=== PATIENT | female | born 1985 | race Caucasian/White ===

== ENCOUNTER 2021-11-23 10:31 | Emergency (ER) | payer SELFPAY ==
[~2021-11-23] VITALS: Ht 152.4 cm; Wt 77.0 kg
[2021-11-23 10:45] VITALS: BP 149/80
--- NOTE | 2021-11-23 11:00 | PHYS DOC ---
Past History Past Surgical History: No Surgical History Adult General Chief Complaint Chief Complaint: KNEE INJURY HPI HPI Patient is a 36-year-old female presents emergency department complaining she stumbled and fell onto her right knee on . Patient reports a 8-9 out of 10 pain. Patient reports using ice packs to right knee on , reports taking a Tylenol the next day with minimal relief in pain, reports trying a knee brace compression device today with some relief in pain. Patient reports pain at the kneecap. Denies pain when at rest, reports her pain elicits when she stands or tries to walk. Patient denies other physical complaints or physical concerns. Reports her last menstrual cycle of normal duration of flow 3 weeks ago. Review of Systems Review of Systems 14 body systems of review of systems have been reviewed. See HPI for pertinent positives and negative responses, otherwise all other systems are negative, nonpertinent or noncontributory. Constitutional: Negative except as outlined in HPI above. Skin: Negative except as outlined in HPI above. Eyes: Negative except as outlined in HPI above. HENT: Negative except as outlined in HPI above. Respiratory: Negative except as outlined in HPI above. Cardiovascular: Negative except as outlined in HPI above. GI: Negative except as outlined in HPI above. : Negative except as outlined in HPI above. Musculoskeletal: Negative except as outlined in HPI above. Integument: Negative except as outlined in HPI above. Neurologic: Negative except as outlined in HPI above. Endocrine: Negative except as outlined in HPI above. Lymphatic: Negative except as outlined in HPI above. Psychiatric: Negative except as outlined in HPI above. Current Medications Current Medications Current Medications Medications (Trade) Dose Ordered Sig/Tere Start Time Stop Time Status Last Admin Dose Admin Ibuprofen (Motrin) 600 mg 1X ONCE 11/23/21 10:45 11/23/21 10:46 UNV Physical Exam Physical Exam Constitutional: Well developed, well nourished, no acute distress, non-toxic appearance. 36-year-old female in no apparent distress. HENT: Normocephalic, atraumatic. Eyes: Conjunctiva normal, no discharge. Neck: Normal range of motion, no stridor. Cardiovascular: No cyanosis appreciated, distal cap refill less than 2 seconds. Lungs & Thorax: Patient is in no respiratory distress, no audible adventitious lung sounds appreciated. Abdomen: Nontender, no abnormalities noted. Skin: Warm, dry, no erythema, no rash. Back: No tenderness, no deformities. Extremities: No tenderness, no cyanosis, no clubbing, ROM intact, no edema. Except for right lower extremity, pain to the kneecap with palpation, no crepitus appreciated with palpation, no bruising, no swelling, no edema, distal cap refill less than 2 seconds, 2+ bilateral dorsalis pedis pulses. Full passive range of motion of knee joint without eliciting pain, satisfactory knee stability tests. Neurologic: Alert and oriented X 3, normal motor function, normal sensory function, no focal deficits noted. Psychologic: Affect normal, judgement normal, mood normal. Current Patient Data Vital Signs Vital Signs Date Time Temp Pulse Resp B/P (MAP) Pulse Ox O2 Delivery O2 Flow Rate FiO2 11/23/21 10:45 98.1 102 18 149/80 (103) 100 Room Air EKG EKG [] Radiology/Procedures Radiology/Procedures REASON: Fall, patellar pain PROCEDURE: KNEE RIGHT 4V AP, oblique, sunrise, and lateral views of the right knee were obtained. Indication: Fall with patellar pain Comparison: none. Findings: No fracture, dislocation, significant degenerative changes, or effusion is seen. Impression: 1. Unremarkable examination of the right knee. Electronically signed by: Catracho Baird MD (11/23/2021 11:12 AM) [id number] Heart Score C/O Chest Pain: No Risk Factors: Risk Factors: DM, Current or recent (<one month) smoker, HTN, HLP, family history of CAD, obesity. Risk Scores: Risk Factors: DM, Current or recent (<one month) smoker, HTN, HLP, family history of CAD, obesity. Course & Med Decision Making Course & Med Decision Making Pertinent Labs and Imaging studies reviewed. (See chart for details) 36-year-old female, vital signs reviewed, presents to the emergency department concerning right knee pain after fall on . Physical examination concerning for right knee contusion versus bony injury, will order ice pack, x- ray of right knee, ibuprofen p.o. for pain. X-ray nonconcerning for acute fracture. Discussed findings with patient, discussed RICE therapy, continue to use compression device on right knee, NSAID therapy, patient requested work excuse for her because he brought her to the emergency department today. Discussed with patient follow-up with primary care for ongoing evaluation and treatment of right knee pain, patient gave verbal understanding of and is amenable to ED discharge planning. Discussed with the patient all findings and diagnostic testing as well as the need to follow-up with their primary care provider for further evaluation and treatment or return to the ED if any new or worsening symptoms. Strict return precautions were also discussed at length, the patient voiced understanding and agreement with the discharge planning. The patient was nontoxic in appearance, in no apparent distress, and hemodynamically stable at the time of disposition. Dragon Disclaimer Dragon Disclaimer This electronic medical record was generated, in whole or in part, using a voice recognition dictation system. Departure Departure: Impression: Primary Impression: Contusion of right knee Disposition: HOME / SELF CARE / HOMELESS Condition: GOOD Referrals: [facility]CP[facility] (PCP) Patient Instructions: Contusion, Knee Wraps (Elastic Bandage) and RICE Additional Instructions: You were seen in the emergency department today for pain of the right knee after a fall on . An x-ray did not show any concerning findings of broken bone or acute knee injury of the bones. As we discussed RICE therapy, this is a acronym for rest, ice, compression, elevation. Please use ice packs 30 minutes on and 30 minutes off while awake for the next 48 to 72 hours. Bela nue to use your compression knee brace device to aid in speedy recovery, elevate your knee often, I am prescribing you ibuprofen to take for discomfort. Please follow-up with your primary care provider soon for ongoing pain management of your knee pain. If you do not have a primary care provider, please consider using the [facility] located at [address] [place] [address] [place] [address], their telephone number is area code [phone]. Thank you for visiting our Emergency Department. It was a pleasure taking care of you today in the emergency department and we appreciate you trusting us with your care. If any additional problems come up don't hesitate to return to visit us. Please follow up with your primary care provider so they can plan additional care if needed and know about the problem that you had. If symptoms worsen come back to the Emergency Department. Any concerning symptoms that start such as chest pain, shortness of air, weakness or numbness on one side of the body, running high fevers or any other concerning symptoms return to the ER. EMERGENCY DEPARTMENT GENERAL DISCHARGE INSTRUCTIONS Thank you for coming to [facility] (ED) today and trusting us with you care. We trust that you had a positivie experience in our Emergency Department. If you wish to speak to the department management, you may call the director at [phone]. YOUR FOLLOW UP INSTRUCTIONS ARE FOLLOWS: 1. Do you have a private Doctor? If you do not have a private doctor, please ask for a resource list of physicians or clinics that may be able to assist you with follow up care. 2. The Emergency Physician has interpreted your x-rays. The X-Ray specialist will also review them. If there is a change in the findings, you will be notified in 48 hours when at all possible. 3. A lab test or culture has been done, your results will be reviewed and you will be notified if you need a change in treatment. ADDITIONAL INSTRUCTIONS AND INFORMATION: 1. Your care today has been supervised by a physician who is specially trained in emergency care. Many problems require more than one evaluation for a complete diagnosis and treatment. We recommend that you schedule your follow up appointment as recommended to ensure complete treatment of you illness or injury. If you are unable to obtain follow up care and continue to have a problem, or if your condition worsens, we recommend that you return to the ED. 2. We are not able to safely determine your condition over the phone nor are we able to give sound medical advice over the phone. For these safety reasons, if you call for medical advice we will ask you to come to the ED for further evaluation. 3. If you have any questions regarding these discharge instructions please call the ED at [phone]. SAFETY INFORMATION: In the interest of safety, wellness, and injury prevention; we encourage you to wear your sealbelt, if you smoke; quite smoking, and we encourage family to use a protective helmet for bicycling and other sporting events that present an increased risk for head injury. IF YOUR SYMPTOMS WORSEN OR NEW SYMPTOMS DEVELOP, OR YOU HAVE CONCERNS ABOUT YOUR CONDITION; OR IF YOUR CONDITION WORSENS WHILE YOU ARE WAITING FOR YOUR FOLLOW UP APPOINTMENT; EITHER CONTACT YOUR PRIMARY CARE DOCTOR, THE PHYSICIAN WHOSE NAME AND NUMBER YOU WERE GIVEN, OR RETURN TO THE ED IMMEDIATELY. Scripts Ibuprofen (IBUPROFEN) 600 Mg Tablet 600 MG PO PRN Q4-6HRS PRN for PAIN, #20 TAB 0 Refills Prov: GISELLE GARCIA APRN 11/23/21 Problem Qualifiers Primary Impression: Contusion of right knee Encounter type: initial encounter Qualified Codes: S80.01XA - Contusion of right knee, initial encounter GISELLE GARCIA ASSISTANT PROFESSOR OF ARCHAEOLOGY Nov 23, 2021 11:00
--- NOTE | 2021-11-23 11:14 | RAD ---
AP, oblique, sunrise, and lateral views of the right knee were obtained. Indication: Fall with patellar pain Comparison: none. Findings: No fracture, dislocation, significant degenerative changes, or effusion is seen. Impression: 1. Unremarkable examination of the right knee. Electronically signed by: Catracho Baird MD (11/23/2021 11:12 AM) [id number]
[2021-11-23] MEDS ORDERED: IBUPROFEN 600 MG TABLET. PO ONE (11:15)
[2021-11-23] MEDS ORDERED: IBUP600T16 PO (12:30)
== END 2021-11-23 12:50 | disposition home or self-care (01) ==
LOC: ER 10:31
DX: S80.01XA Contusion of right knee, initial encounter (principal); W01.0XXA Fall on same level from slipping, tripping and stumbling without subsequent striking against object, initial encounter; Y93.89 Activity, other specified; Y92.89 Other specified places as the place of occurrence of the external cause; Y99.8 Other external cause status
CPT/HCPCS: 73564; 99283

== ENCOUNTER 2021-12-07 15:32 | Emergency (ER) | payer SELFPAY ==
[~2021-12-07] VITALS: Ht 152.4 cm; Wt 77.0 kg
[~2021-12-07 15:32] MED LIST: IBUP600T16 PO
[2021-12-07 15:50] VITALS: BP 141/90
[2021-12-07] MEDS ORDERED: ONDANSETRON ODT 4 MG TAB.RAPDIS PO ONE ×2 (16:00→17:30)
--- NOTE | 2021-12-07 16:57 | RAD ---
EXAM: Chest, 2 views. HISTORY: Cough. Fever. COMPARISON: None. FINDINGS: 2 views of the chest are obtained. There is no infiltrate, protrusion or pneumothorax. The heart is normal in size. IMPRESSION: No acute pulmonary finding. Electronically signed by: Nurys Gottlieb MD (12/07/2021 4:55 PM) [id number]
[2021-12-07] MEDS ORDERED: ONDA4TAB12 PO (17:32)
--- NOTE | 2021-12-07 17:33 | PHYS DOC ---
Past History Past Surgical History: No Surgical History Alcohol Use: None General Adult EDM: Chief Complaint: FEVER HPI: HPI: 36-year-old female presents with low-grade fevers and vomiting. Patient has had body aches, congestion for a few days. Today she has had vomiting several times. She is unable to keep down liquids or solids. She decided she should come in for evaluation. She states she has had a fever but has not measured 1. Is 100 even in the ER. The patient is vaccinated against COVID-19 but not influenza. She has had a least one bout of diarrhea. She denies any significant abdominal pain. Review of Systems: Review of Systems: Constitutional: Denies fever or chills. Body aches, fatigue Eyes: Denies change in visual acuity HENT: Denies nasal congestion or sore throat Respiratory: Denies cough or shortness of breath Cardiovascular: Denies chest pain or edema GI: Denies abdominal pain. Nausea, vomiting, diarrhea : Denies dysuria Musculoskeletal: Denies back pain or joint pain Integument: Denies rash Neurologic: Denies headache, focal weakness or sensory changes Endocrine: Denies polyuria or polydipsia Lymphatic: Denies swollen glands Psychiatric: Denies depression or anxiety Current Medications: Current Meds: Current Medications Medications (Trade) Dose Ordered Sig/Tere Start Time Stop Time Status Last Admin Dose Admin Ondansetron HCl (Zofran Odt) 4 mg 1X ONCE 12/07/21 16:00 12/07/21 16:02 MD Allergies: Allergies: Allergies Coded Allergies Type Severity Reaction Last Updated Verified No Known Drug Allergies 11/23/21 No Physical Exam: PE: Constitutional: Well developed, well nourished, obese, no acute distress, non- toxic appearance. [] HENT: Normocephalic, atraumatic, bilateral external ears normal, oropharynx moist, no oral exudates, nose normal. [] Eyes: PERRLA, EOMI, conjunctiva normal, no discharge. [] Neck: Normal range of motion, no tenderness, supple, no stridor. [] Cardiovascular: Heart rate regular rhythm, no murmur [] Lungs & Thorax: Bilateral breath sounds clear to auscultation [] Abdomen: Bowel sounds normal, soft, no tenderness, no masses, no pulsatile masses. [] Skin: Warm, dry, no erythema, no rash. [] Back: No tenderness, no CVA tenderness. [] Extremities: No tenderness, no cyanosis, no clubbing, ROM intact, no edema. [] Neurologic: Alert and oriented X 3, normal motor function, normal sensory function, no focal deficits noted. [] Psychologic: Affect normal, judgement normal, mood normal. [] Current Patient Data: Vital Signs: Vital Signs Date Time Temp Pulse Resp B/P (MAP) Pulse Ox O2 Delivery O2 Flow Rate FiO2 12/07/21 15:50 100.2 124 18 141/90 (107) 98 Room Air EKG: EKG: [] Radiology/Procedures: Radiology/Procedures: [] Heart Score: C/O Chest Pain: N/A Risk Factors: Risk Factors: DM, Current or recent (<one month) smoker, HTN, HLP, family history of CAD, obesity. Risk Scores: Score 0 - 3: 2.5% MACE over next 6 weeks - Discharge Home Score 4 - 6: 20.3% MACE over next 6 weeks - Admit for Clinical Observation Score 7 - 10: 72.7% MACE over next 6 weeks - Early Invasive Strategies Course & Med Decision Making: Course & Med Decision Making Pertinent Labs and Imaging studies reviewed. (See chart for details) The patient appears to have a viral illness. We will give her 4 mg of Zofran in the ER and a p.o. challenge. I will discharge her with same medication. Covid testing is pending. She is stable for discharge at this time. [] Dragon Disclaimer: Dragon Disclaimer: This electronic medical record was generated, in whole or in part, using a voice recognition dictation system. Departure Departure: Impression: Primary Impression: Vomiting Qualified Codes: R11.2 - Nausea with vomiting, unspecified Additional Impression: Suspected 2019 novel coronavirus infection Disposition: HOME / SELF CARE / HOMELESS Condition: STABLE Referrals: PCP,NO (PCP) Patient Instructions: Nausea and Vomiting, [id number] Additional Instructions: You have been tested for or diagnosed with COVID-19. It is an infection caused by a new type of coronavirus. COVID-19 will cause cold-like or mild flu symptoms in most. It can cause more severe symptoms like problems breathing in some. There is no treatment for COVID-19. The body will clear the infection over time. Self-care will help to ease discomfort. Steps to Take: Self-Care Rest as needed. Healthy habits may help you feel better. Steps include: Choose healthy foods including fruits and vegetables. Drink water throughout the day. Get plenty of sleep each night. If you smoke, try to quit. It may ease breathing. Avoid alcohol. Keep Others Healthy The virus can spread to others. Droplets are released every time you sneeze or cough. The droplets can get into the mouth, nose, or eyes of people near you and lead to infection. To lower the chances of spreading COVID-19 to others: Stay at home until your doctor has said it is safe to leave. If you tested positive this will mean staying isolated until both of the following are true: At least 7 days have passed since the start of illness. You are free of fever for at least 72 hours without the use of medicine. During this time: - Avoid public areas, events, or transportation. Do not return to work or school until your doctor has said it is safe to do so. - Call ahead if you need to go to a medical center. Let them know you may have COVID-19. It will help them guide you where to go. They may also ask you to wear a facemask when you come to the office. - If you call for emergency medical services, let them know you may have COVID- 19. While at home: - Try to avoid close contact with others. Stay about 6 feet away. - If possible, spend most of your time in a separate room from others. - Use a face mask if you will be in close contact with others such as sharing a room or vehicle. - Have someone wipe down common surfaces in the home. Use household refrigerator mover every day on areas like doorknobs, counters, or sinks. - Cough or sneeze into a tissue. Throw the tissue away right after use. If a tissue is not available, cough or sneeze into your elbow. - Wash your hands often. Wash them after sneezing or coughing. Use soap and water and wash for at least 20 seconds. Alcohol based hand equipment cleaner and tester can be used if soap and water is not available. - Do not prepare food for others. Avoid sharing personal items like forks, spoons, or toothbrushes. - Avoid close contact with pets while you are sick. There is no evidence of the virus passing to pets. This is a safety step until more is known about this virus. Isolation can be frustrating. Social interaction can help. Keep in touch with friends and family through phone and tech options. You can still interact with others in your home, just keep a safe distance of about 6 feet. Follow-up: Your doctors office will check in with you to see if there are any changes in your health. You may be asked to keep track of symptoms to share with them. They will also let you know when you are clear to be in public again. Problems to Look Out For: Contact your doctor if your recovery is not going as you expect. Get emergency care if you have problems such as: - Trouble breathing - Nonstop chest pain or pressure - Changes in awareness, confusion, or problems waking - Lips or face have bluish color - Worsening of symptoms If you think you have an emergency, call for emergency medical services right away. As taken from [facility] Scripts Ondansetron (ONDANSETRON ODT) 4 Mg Tab.rapdis 1 TAB PO PRN Q6-8HRS PRN for VOMITING, #16 TAB Prov: VALENTINA HERNANDEZ DO 12/07/21 VALENTINA HERNANDEZ DO Dec 07, 2021 17:33
[2021-12-07 17:35] LABS: INFLUENZA A PATIENT NEGATIVE (NEGATIVE); INFLUENZA B PATIENT NEGATIVE (NEGATIVE)
== END 2021-12-07 18:09 | disposition home or self-care (01) ==
LOC: ER 15:32
DX: U07.1 COVID-19 (principal)
CPT/HCPCS: 71046; 87804; 99284; C9803; Q0162; U0003

== ENCOUNTER 2022-01-31 08:50 | Emergency (ER) | payer SELFPAY ==
[~2022-01-31] VITALS: Ht 152.4 cm; Wt 77.0 kg
[~2022-01-31 08:50] MED LIST changes: +ONDA4TAB12 PO
--- NOTE | 2022-01-31 09:08 | PHYS DOC ---
Past History Past Surgical History: No Surgical History Alcohol Use: None General Adult EDM: Chief Complaint: ABDOMINAL PAIN HPI: HPI: 36-year-old female presents with abdominal pain. The patient has had intermittent pain for some time. She recently moved back here from [place]. She presents today because the cramping pain is more frequent and she had 4 episodes of vomiting overnight. She describes it as a cramping sensation at baseline but with palpation of her abdomen it can have a sharp character of moderate intensity. The patient has fibroids and was scheduled to have them removed but she got . She has not been able to follow-up after the of her child. She does notice the pain seems to be more around the time she starts her menstrual cycle. Menstrual cycle is due in about a week. She has intermittent constipation that she treats with MiraLAX. Review of Systems: Review of Systems: Constitutional: Denies fever or chills Eyes: Denies change in visual acuity HENT: Denies nasal congestion or sore throat Respiratory: Denies cough or shortness of breath Cardiovascular: Denies chest pain or edema GI: Left-sided abdominal pain, vomiting. : Denies dysuria Musculoskeletal: Denies back pain or joint pain Integument: Denies rash Neurologic: Denies headache, focal weakness or sensory changes Endocrine: Denies polyuria or polydipsia Lymphatic: Denies swollen glands Psychiatric: Denies depression or anxiety Allergies: Allergies: Allergies Coded Allergies Type Severity Reaction Last Updated Verified No Known Drug Allergies 11/23/21 No Physical Exam: PE: Constitutional: Well developed, well nourished, obese, no acute distress, non- toxic appearance. [] HENT: Normocephalic, atraumatic, bilateral external ears normal, oropharynx moist, no oral exudates, nose normal. [] Eyes: PERRLA, EOMI, conjunctiva normal, no discharge. [] Neck: Normal range of motion, no tenderness, supple, no stridor. [] Cardiovascular: Heart rate regular rhythm, no murmur [] Lungs & Thorax: Bilateral breath sounds clear to auscultation [] Abdomen: Bowel sounds normal, soft, left sided tenderness, no masses, no pulsatile masses. [] Skin: Warm, dry, no erythema, no rash. [] Back: No tenderness, no CVA tenderness. [] Extremities: No tenderness, no cyanosis, no clubbing, ROM intact, no edema. [] Neurologic: Alert and oriented X 3, normal motor function, normal sensory function, no focal deficits noted. [] Psychologic: Affect normal, judgement normal, mood normal. [] Current Patient Data: Vital Signs: Vital Signs Date Time Temp Pulse Resp B/P (MAP) Pulse Ox O2 Delivery O2 Flow Rate FiO2 01/31/22 08:57 97.9 100 16 130/87 (101) 96 Room Air EKG: EKG: [] Radiology/Procedures: Radiology/Procedures: [] Impressions: EXAM: CT Abdomen and Pelvis with IV contrast CLINICAL HISTORY: Reason: LLQ pain / Spl. Instructions: / History: . COMPARISON: none TECHNIQUE: Helical CT of the abdomen and pelvis was performed following the administration of intravenous contrast. Axial, coronal and sagittal reformatted images were generated. PQRS compliance statement - One or more of the following individualized dose r eduction techniques were utilized for this study: 1. Automated exposure control 2. Adjustment of the mA and/or kV according to patient size 3. Use of iterative reconstruction technique FINDINGS: Lower Chest: Visualized lung bases are clear. Abdomen and Pelvis: Diffuse hepatic steatosis. No focal hepatic abnormality. Gallbladder is surgically absent. The spleen, adrenals, and pancreas are unremarkable. There is a 4 mm calculus in the right proximal ureter with mild hydronephrosis. No additional ureteral calculi in the remaining course of the ureter. There is a additional nonobstructing stone in the inferior pole of the right kidney. There is some cortical scarring of the superior pole of the right kidney. There is a 8 mm hypoattenuating focus in the superior/interpolar region of the left kidney, too small to characterize favoring a benign etiology. There are a few punctate nonobstructing left renal calculi. No hydroureteronephrosis. Bladder is decompressed, precluding complete evaluation. Stomach is unremarkable. No evidence of bowel obstruction or focal inflammation. Mild amount of stool seen throughout the colon. Appendix is unremarkable. No free intra-abdominal air or free fluid. No pathologically enlarged abdominal or pelvic lymph nodes. Uterus is present. Hyperattenuating nodularity within the left uterine wall suggestive of a noncalcified intramural fibroid. Multiple nabothian cysts are present. Ovaries are unremarkable. Small fat-containing periumbilical fat-containing hernia. Bones: No acute or suspicious osseous abnormalities. Bilateral transitional anatomy of L5-S1. IMPRESSION: 1. Age-indeterminate 4 mm calculus in the right proximal ureter with mild hydronephrosis. 2. Bilateral nonobstructing nephrolithiasis. 3. Diffuse hepatic steatosis. 4. Other incidental nonacute findings, as above. Electronically signed by: Paras Che DO (01/31/2022 10:14 AM) [facility] DICTATED AND SIGNED BY: PARAS CHE DO DATE: 01/31/22957 CC: VALENTINA HERNANDEZ DO; PCP,NO ~MTH0 0 Heart Score: C/O Chest Pain: N/A Risk Factors: Risk Factors: DM, Current or recent (<one month) smoker, HTN, HLP, family history of CAD, obesity. Risk Scores: Score 0 - 3: 2.5% MACE over next 6 weeks - Discharge Home Score 4 - 6: 20.3% MACE over next 6 weeks - Admit for Clinical Observation Score 7 - 10: 72.7% MACE over next 6 weeks - Early Invasive Strategies Course & Med Decision Making: Course & Med Decision Making Pertinent Labs and Imaging studies reviewed. (See chart for details) The patient has a mildly elevated white count. Her urine is negative for infection however there is blood. CT of the abdomen pelvis shows a 4 mm proximal calculus of the right ureter. BUN and creatinine are normal. There are several other calculi in the kidneys. She has an intramural fibroid in her uterus. See official read for more details. She also has a small umbilical hernia. I suspect her intermittent pain could be from her kidney stone. She may have had previous kidney stones. It could also be irritation of the hernia or her fibroid. I recommended that she establish with a primary physician now that she lives here and start schedule appropriate follow-up. I will discharge her with [place] and Flomax. If she does not pass the stone in the next several days, urology. She is stable for discharge at this time. [] Alireza Disclaimer: Alireza Disclaimer: This electronic medical record was generated, in whole or in part, using a voice recognition dictation system. Departure Departure: Impression: Primary Impression: Kidney stone on right side Additional Impressions: Uterine fibroid Qualified Codes: D25.1 - Intramural leiomyoma of uterus Umbilical hernia Qualified Codes: K42.9 - Umbilical hernia without obstruction or gangrene Disposition: HOME / SELF CARE / HOMELESS Condition: STABLE Referrals: PCP,NO (PCP) Patient Instructions: Kidney Stones, [id number] Scripts Ondansetron (ONDANSETRON ODT) 4 Mg Tab.rapdis 1 TAB PO PRN Q6-8HRS PRN for VOMITING, #16 TAB Prov: VALENTINA HERNANDEZ DO 01/31/22 Hydrocodone/Acetaminophen (Hydrocodone-Acetamin 5-325 mg) 1 Each Tablet 1 EACH PO Q4-6HRS PRN for PAIN, #10 TAB Prov: VALENTINA HERNANDEZ DO 01/31/22 Tamsulosin Hcl (FLOMAX) 0.4 Mg Cap.er.24h 1 CAP PO DAILY for kidney stone for 15 Days, #15 CAP 11 Refills Prov: VALENTINA HERNANDEZ DO 01/31/22 VALENTINA HERNANDEZ DO Jan 31, 2022 09:08
[2022-01-31] MEDS ORDERED: IV NORMAL SALINE 1,000ML 1,000 ML IV ONE (09:15)
[2022-01-31] MEDS ORDERED: IOHEXOL 300 MG/ML 75 ML VIAL. IV ONE (09:15)
[2022-01-31] MEDS ORDERED: ONDANSETRON PF 4 MG/2 ML VIAL. IVP ONE (09:15)
[2022-01-31] MEDS ORDERED: MORPHINE SULFATE 4 MG/ML DISP.SYRIN. IV ONE (09:15)
[2022-01-31 09:49] LABS: BASO # 0.1 x10^3/uL (0.0-0.2); BASO % 1 % (0-3); EOS # 0.2 x10^3/uL (0.0-0.7); EOS % 1 % (0-3); HEMATOCRIT 40.4 % (36.0-47.0); HEMOGLOBIN 13.1 g/dL (12.0-15.5); LYMPH # 2.9 x10^3/uL (1.0-4.8); LYMPH % 20 % (24-48); MEAN CORPUSCULAR HEMOGLOBIN 27 pg (25-35); MEAN CORPUSCULAR HGB CONC 33 g/dL (31-37); MEAN CORPUSCULAR VOLUME 84 fL (79-100); MONO # 0.8 x10^3/uL (0.0-1.1); MONO % 5 % (0-9); NEUT # 10.3 x10^3uL (1.8-7.7); NEUT % 73 % (31-73); PLATELET COUNT 238 x10^3/uL (140-400); RED CELL DISTRIBUTION WIDTH 14.3 % (11.5-14.5); WHITE BLOOD COUNT 14.3 x10^3/uL (4.0-11.0)
[2022-01-31 09:54] LABS: CALCIUM 9.2 mg/dL (8.5-10.1); CREATININE 0.7 mg/dL (0.6-1.0); GFR 93.6; POTASSIUM 3.8 mmol/L (3.5-5.1)
[2022-01-31 10:00] LABS: ALBUMIN 3.8 g/dL (3.4-5.0); TOTAL BILIRUBIN 1.1 mg/dL (0.2-1.0); TOTAL PROTEIN 7.6 g/dL (6.4-8.2)
[2022-01-31 10:09] LABS: CLARITY,URINE HAZY; COLOR,URINE YELLOW; GLUCOSE,URINE 100 mg/dL (NEG); NITRITE,URINE NEG (NEG); UROBILINOGEN,URINE 0.2 mg/dL (0.2 mg/dL)
[2022-01-31 10:10] LABS: BACTERIA,URINE FEW /HPF (0-FEW); SQUAMOUS EPITHELIAL CELL,UR FEW /LPF
--- NOTE | 2022-01-31 10:16 | RAD ---
EXAM: CT Abdomen and Pelvis with IV contrast CLINICAL HISTORY: Reason: LLQ pain / Spl. Instructions: / History: . COMPARISON: none TECHNIQUE: Helical CT of the abdomen and pelvis was performed following the administration of intrave nous contrast. Axial, coronal and sagittal reformatted images were generated. PQRS compliance statement - One or more of the following individualized dose reduction techniques wer e utilized for this study: 1. Automated exposure control 2. Adjustment of the mA and/or kV according to patient size 3. Use of iterative reconstruction technique FINDINGS: Lower Chest: Visualized lung bases are clear. Abdomen and Pelvis: Diffuse hepatic steatosis. No focal hepatic abnormality. Gallbladder is surgically absent. The spleen , adrenals, and pancreas are unremarkable. There is a 4 mm calculus in the right proximal ureter with mild hydronephrosis. No additional uretera l calculi in the remaining course of the ureter. There is a additional nonobstructing stone in the in ferior pole of the right kidney. There is some cortical scarring of the superior pole of the right ki dney. There is a 8 mm hypoattenuating focus in the superior/interpolar region of the left kidney, too small to characterize favoring a benign etiology. There are a few punctate nonobstructing left renal calculi. No hydroureteronephrosis. Bladder is decompressed, precluding complete evaluation. Stomach is unremarkable. No evidence of bowel obstruction or focal inflammation. Mild amount of stool seen throughout the colon. Appendix is unremarkable. No free intra-abdominal air or free fluid. No p athologically enlarged abdominal or pelvic lymph nodes. Uterus is present. Hyperattenuating nodularity within the left uterine wall suggestive of a noncalcif ied intramural fibroid. Multiple nabothian cysts are present. Ovaries are unremarkable. Small fat-containing periumbilical fat-containing hernia. Bones: No acute or suspicious osseous abnormalities. Bilateral transitional anatomy of L5-S1. IMPRESSION: 1. Age-indeterminate 4 mm calculus in the right proximal ureter with mild hydronephrosis. 2. Bilateral nonobstructing nephrolithiasis. 3. Diffuse hepatic steatosis. 4. Other incidental nonacute findings, as above. Electronically signed by: Paras Renee DO (01/31/2022 10:14 AM) [facility]
[2022-01-31] MEDS ORDERED: TAMS0.4C97 PO (10:45)
[2022-01-31] MEDS ORDERED: HYDR-2759 PO (10:45)
[2022-01-31 10:46] VITALS: BP 111/85
[2022-01-31] MEDS ORDERED: ONDA4TAB12 PO (10:46)
== END 2022-01-31 10:59 | disposition home or self-care (01) ==
LOC: ER 08:50
DX: D25.1 Intramural leiomyoma of uterus (principal); N13.2 Hydronephrosis with renal and ureteral calculous obstruction; K42.9 Umbilical hernia without obstruction or gangrene
CPT/HCPCS: 36415; 74177; 80053; 81001; 81025; 83690; 85025; 96361; 96374; 96375; 99285; J2270; J2405; J7030; Q9967

== ENCOUNTER 2022-02-15 12:34 | Emergency (ER) | payer SELFPAY ==
[~2022-02-15] VITALS: Ht 152.4 cm; Wt 77.0 kg
[2022-02-15 12:34] VITALS: BP 120/68
[~2022-02-15 12:34] MED LIST changes: +HYDR-2759 PO; +TAMS0.4C97 PO
--- NOTE | 2022-02-15 13:12 | PHYS DOC ---
Past History Additional Past Medical Histor: Hernia,uterine fibroids (TD WILKINS APRN) Past Surgical History: Cholecystectomy (TD WILKINS APRN) Alcohol Use: None (TD WILKINS APRN) General Adult EDM: Chief Complaint: NAUSEA/VOMITING/DIARRHEA HPI: HPI: Patient is a 36-year-old female who presents to the emergency department today for a 1 day history of nausea, vomiting and diarrhea. She is also reporting fatigue. Patient reports that she vomited 3 times yesterday but has not vomited today. She reports taking Pepto-Bismol and Zofran that has improved her symptoms. She is also reporting umbilical abdominal pain she rates 8 out of 10. No treatment prior to arrival for her pain. She reports that her daughter is sick with similar symptoms. Last menstrual period February 08. Patient reports that she is able to tolerate oral intake and did eat some fruit for breakfast this morning. She denies any blood in her stools or vomit, urinary symptoms, fever, travel, alcohol use. (TD WILKINS APRN) Review of Systems: Review of Systems: Constitutional: See HPI GI: See HPI : See HPI (TD WILKINS APRN) Current Medications: Current Meds: Current Medications Medications (Trade) Dose Ordered Sig/Tere Start Time Stop Time Status Last Admin Dose Admin Loperamide HCl (Imodium) 2 mg 1X ONCE 02/15/22 13:15 02/15/22 13:16 UNV Ondansetron HCl (Zofran Odt) 4 mg 1X ONCE 02/15/22 13:15 02/15/22 13:16 UNV (TD WILKINS APRN) Allergies: Allergies: Allergies Coded Allergies Type Severity Reaction Last Updated Verified No Known Drug Allergies 11/23/21 No (TD WILKINS APRN) Physical Exam: PE: Constitutional: Well developed, well nourished, no acute distress, non-toxic appearance. [] HENT: Normocephalic, atraumatic, bilateral external ears normal, oropharynx moist, no oral exudates, nose normal. [] Eyes: PERRL, EOMI, conjunctiva normal, no discharge. [] Neck: Normal range of motion, no stridor Cardiovascular:Heart rate regular rhythm, no murmur [] Lungs & Thorax: Bilateral breath sounds clear to auscultation [] Abdomen: No masses, no pulsatile masses, obese, soft, mild tenderness with palpation to umbilical area of abdomen, no rebound tenderness Skin: Warm, dry, no erythema, no rash. [] Back: Normal range of motion Extremities: No tenderness, no cyanosis, no clubbing, ROM intact, no edema. [] Neurologic: Alert and oriented X 3, normal motor function, normal sensory function, no focal deficits noted. [] Psychologic: Affect normal, judgement normal, mood normal. [] (TD WILKINS APRN) Current Patient Data: Labs: Laboratory Tests Test 02/15/22 12:45 02/15/22 12:49 02/15/22 13:31 Influenza Type A (Rapid) Negative Influenza Type B (Rapid) Negative SARS-CoV-2 Antigen (Rapid) Negative Bedside Urine HCG, Qualitative hcg negative Urine Collection Type Unknown Urine Color Brown Urine Clarity Turbid Urine pH Urine Specific [place] Urine Protein Urine Glucose (UA) mg/dL Urine Ketones (Stick) mg/dL Urine Blood Urine Nitrite Urine Bilirubin Urine Urobilinogen Dipstick mg/dL Urine Leukocyte Esterase Urine RBC Tntc /HPF Urine WBC 11-20 /HPF Urine Squamous Epithelial Cells Few /LPF Urine Bacteria 0 /HPF Urine Mucus Slight /LPF Current Medications Medications (Trade) Dose Ordered Sig/Tere Route PRN Reason Start Time Stop Time Status Last Admin Dose Admin Ondansetron HCl (Zofran Odt) 4 mg 1X ONCE PO 02/15/22 13:15 02/15/22 13:16 DC 02/15/22 13:17 Loperamide HCl (Imodium) 2 mg 1X ONCE PO 02/15/22 13:15 02/15/22 13:16 DC 02/15/22 13:17 Vital Signs: Vital Signs Date Time Temp Pulse Resp B/P (MAP) Pulse Ox O2 Delivery O2 Flow Rate FiO2 02/15/22 12:34 98.8 95 16 120/68 (85) 98 Room Air (TD WILKINS APRN) EKG: EKG: [] (TD WILKINS APRN) Radiology/Procedures: Radiology/Procedures: [] (TD WILKINS APRN) Heart Score: C/O Chest Pain: N/A Risk Factors: Risk Factors: DM, Current or recent (<one month) smoker, HTN, HLP, family history of CAD, obesity. Risk Scores: Score 0 - 3: 2.5% MACE over next 6 weeks - Discharge Home Score 4 - 6: 20.3% MACE over next 6 weeks - Admit for Clinical Observation Score 7 - 10: 72.7% MACE over next 6 weeks - Early Invasive Strategies (TD WILKINS APRN) Course & Med Decision Making: Course & Med Decision Making Pertinent Labs and Imaging studies reviewed. (See chart for details) [] Patient presents to the emergency department with a 1 day history of nausea, vomiting, diarrhea and fatigue with a sick exposure with similar symptoms. Patient is able to tolerate oral intake was able to eat fruit for breakfast. She is not actively vomiting and has not vomited at all today. Patient is reporting umbilical abdominal pain her abdomen is soft without any rigidity, rebound tenderness. Patient be tested for influenza and COVID-19. She will be given Zofran and Imodium and p.o. challenged. Patient's pain was also treated with Bentyl. Patient is able to tolerate oral intake in the emergency department. Her VSS. Negative influenza and Covid testing. Urinalysis shows red blood cells and white blood cells, unable to determine if patient had leukocytes or nitrates due to the bloody appearance of urine, I discussed this with supervising physician, patient will be treated with an antibiotic for cystitis. Patient also be discharged home with nausea medication. Advised to take Imodium [id number] for diarrhea. Advised to follow-up with primary care provider tomorrow. I discussed with patient all findings and diagnostic testing as well as the need to follow-up with PCP for further evaluation and treatment or return to the ER if any new or worsening symptoms. Strict return precautions were also discussed at length. Patient voiced understanding and agreement with the plan. Patient is hemodynamically stable at the time of disposition. (TD WILKINS APRN) Course & Med Decision Making Did not see patient. Did not discuss patient with LUGGAGE MAKER. Generally agree with LUGGAGE MAKER's work-up and disposition per note (KULDEEP SEAMAN MD) [place] Disclaimer: Dragon Disclaimer: This electronic medical record was generated, in whole or in part, using a voice recognition dictation system. (TD WILKINS APRN) Departure Departure: Impression: Primary Impression: Nausea & vomiting Qualified Codes: R11.2 - Nausea with vomiting, unspecified Disposition: 01 HOME / SELF CARE / HOMELESS Condition: GOOD Referrals: PCP,NO (PCP) Patient Instructions: Nausea and Vomiting, [id number], Urinary Tract Infection Additional Instructions: You were seen in the emergency department today with nausea vomiting and diarrhea. Your influenza and Covid test was negative. Your urinalysis did have white blood cells and red blood cells therefore treating with an antibiotic. Please start and finish the antibiotic completely. Increase your fluids. You can take the nausea medication prescribed to you as needed. I would advise you to stick to a bland diet. We recommend a brat diet which includes bananas, rice, applesauce and toast. Please avoid eating any spicy, greasy or fatty foods. Please follow-up with your primary care provider tomorrow regarding your ER visit. If you do not have a primary care provider you can follow-up with one of the clinics or primary care providers attached to this discharge paperwork. Return to the emergency department if you develop worsening of your nausea or vomiting, blood in your stools or vomit, high fevers refractory to treatment, severe abdominal pain. Scripts Ondansetron (ONDANSETRON ODT) 4 Mg Tab.rapdis 1 TAB PO PRN Q6-8HRS for nausea for 7 Days, #28 TAB 0 Refills Prov: TD WILKINS APRN 02/15/22 Cephalexin (KEFLEX) 500 Mg Capsule 1 CAP PO BID for uti for 7 Days, #14 CAP 0 Refills Prov: TD WILKINS APRN 02/15/22 TD WILKINS APRN Feb 15, 2022 13:12 KULDEEP SEAMAN MD Feb 15, 2022 14:51
[2022-02-15] MEDS: LOPERAMIDE 2 MG CAPSULE PO ONE (13:17)
[2022-02-15] MEDS: ONDANSETRON ODT 4 MG TAB.RAPDIS PO ONE (13:17)
[2022-02-15 13:24] LABS: INFLUENZA A PATIENT NEGATIVE (NEGATIVE); INFLUENZA B PATIENT NEGATIVE (NEGATIVE)
[2022-02-15 14:12] LABS: BACTERIA,URINE 0 /HPF (0-FEW); CLARITY,URINE TURBID; COLOR,URINE BROWN; RBC,URINE TNTC /HPF (0-2); SQUAMOUS EPITHELIAL CELL,UR FEW /LPF
[2022-02-15] MEDS ORDERED: CEPH500C PO (14:44)
[2022-02-15] MEDS ORDERED: ONDA4TAB12 PO (14:44)
[2022-02-15] MEDS: DICYCLOMINE 20 MG/2 ML VIAL. IM ONE (14:55)
== END 2022-02-15 14:59 | disposition home or self-care (01) ==
LOC: ER 12:34
DX: R11.2 Nausea with vomiting, unspecified (principal); R19.7 Diarrhea, unspecified; R10.33 Periumbilical pain; Z20.822 Contact with and (suspected) exposure to COVID-19; Z90.49 Acquired absence of other specified parts of digestive tract
CPT/HCPCS: 81001; 81025; 87086; 87428; 96372; 99283; J0500; Q0162